=== PATIENT | female | born 1980 | race American Indian/Alaskan Native ===

== ENCOUNTER 2016-03-18 00:37 | Emergency (ER) | payer MEDICAID ==
[2016-03-18 01:28] VITALS: BP 189/125
--- NOTE | 2016-03-18 08:00 | ED Elopement Review ---
ED Pt Elopement review - Call Back decision Pt Call Back Decision: Call pt to return to ED [facility] (HTN, Tachy)
== END 2016-03-18 03:30 | disposition left against medical advice (07) ==
LOC: ED 00:37
DX: F41.9 Anxiety disorder, unspecified (principal); Z53.21 Procedure and treatment not carried out due to patient leaving prior to being seen by health care provider
CPT/HCPCS: 93005; 93010

== ENCOUNTER 2016-03-19 21:07 | Emergency (ER) | payer MEDICAID ==
[2016-03-19 21:40] VITALS: BP 178/116
[2016-03-19 23:12] LABS: Basophils % (Auto) 0.3 % (0.0-1.8); Eosinophils % (Auto) 1.4 % (0.0-4.3); Hematocrit 38.5 % (30.3-42.9); Hemoglobin 12.7 gm/dl (10.1-14.3); Mean Corpuscular HGB Conc 33 % (30-34); Mean Corpuscular Hemoglobin 30 pg (28-32); Mean Corpuscular Volume 90 fl (79-97); Platelet Count 414 K/mm3 (140-440); Red Blood Count 4.27 M/mm3 (3.65-5.03); Red Cell Distribution Width 13.7 % (13.2-15.2); White Blood Count 15.8 K/mm3 (4.5-11.0)
[2016-03-20 01:17] LABS: Anion Gap 17 mmol/L; BUN/Creatinine Ratio 13.33; Blood Urea Nitrogen 8 mg/dL (7-17); Calcium 9.5 mg/dL (8.4-10.2); Carbon Dioxide 27 mmol/L (22-30); Chloride 95.5 mmol/L (98-107); Glucose 119 mg/dL (65-100); Potassium 3.8 mmol/L (3.6-5.0); Sodium 136 mmol/L (137-145)
--- NOTE | 2016-03-20 07:29 | ED Elopement Review ---
ED Pt Elopement review - Results review Lab results: Laboratory Tests 03/19/16 03/19/16 22:59 22:59 WBC 15.8 H RBC 4.27 Hgb 12.7 Hct 38.5 MCV 90 MCH 30 MCHC 33 RDW 13.7 Plt Count 414 Lymph % (Auto) 21.7 [place] % (Auto) 6.3 Eos % (Auto) 1.4 Baso % (Auto) 0.3 Lymph # 3.4 [place] # 1.0 H Eos # 0.2 Baso # 0.1 Seg Neutrophils % 70.3 H Seg Neutrophils # 11.1 H Sodium 136 L Potassium 3.8 Chloride 95.5 L Carbon Dioxide 27 Anion Gap 17 BUN 8 Creatinine 0.6 L Estimated GFR > 60 BUN/Creatinine Ratio 13.33 Glucose 119 H Calcium 9.5 Troponin T < 0.010 - Call Back decision Pt Call Back Decision: Pt to F/U with PMD (White blood cell count of 15,000, hypertension, follow-up with primary care doctor)
== END 2016-03-20 01:08 | disposition left against medical advice (07) ==
LOC: ED 21:07
DX: I10 Essential (primary) hypertension (principal); M79.602 Pain in left arm; Z53.21 Procedure and treatment not carried out due to patient leaving prior to being seen by health care provider
CPT/HCPCS: 36415; 80048; 84484; 85025; 93005; 93010

== ENCOUNTER 2016-06-16 17:41 | Emergency (ER) | payer MEDICAID ==
[2016-06-16 17:53] VITALS: BP 159/120
[2016-06-16 18:19] LABS: Basophils % (Auto) 0.4 % (0.0-1.8); Eosinophils % (Auto) 1.1 % (0.0-4.3); Hematocrit 37.4 % (30.3-42.9); Hemoglobin 12.3 gm/dl (10.1-14.3); Mean Corpuscular HGB Conc 33 % (30-34); Mean Corpuscular Hemoglobin 29 pg (28-32); Mean Corpuscular Volume 89 fl (79-97); Platelet Count 418 K/mm3 (140-440); Red Cell Distribution Width 13.7 % (13.2-15.2); White Blood Count 13.2 K/mm3 (4.5-11.0)
[2016-06-16 18:40] LABS: Anion Gap 18 mmol/L; Blood Urea Nitrogen 9 mg/dL (7-17); Calcium 9.5 mg/dL (8.4-10.2); Carbon Dioxide 27 mmol/L (22-30); Chloride 99.4 mmol/L (98-107); Glucose 93 mg/dL (65-100); Potassium 3.9 mmol/L (3.6-5.0); Sodium 140 mmol/L (137-145)
--- NOTE | 2016-06-16 18:40 | Cat Scan Report ---
FINAL REPORT PROCEDURE: CT head without contrast. TECHNIQUE: Computerized tomography of the head was performed without contrast material. HISTORY: Neurological deficits. COMPARISON: No prior studies are available for comparison. FINDINGS: The ventricles are normal in size. The [place] matter and white matter appear normal. There are no mass lesions. There is no intracranial hemorrhage. There are no signs of acute infarction. An MRI scan with diffusion-weighted imaging is the most sensitive means of detecting an early stroke. The calvarium appears intact. The mastoid air cells and visualized paranasal sinuses are clear. IMPRESSION: Normal study.
[2016-06-16 18:56] LABS: Partial Thromboplastin Time 29.4 Sec. (24.2-36.6)
--- NOTE | 2016-06-21 19:34 | ED Elopement Review ---
ED Pt Elopement review - Results review Lab results: Laboratory Tests 06/16/16 06/16/16 06/16/16 18:03 18:03 18:03 WBC 13.2 H RBC 4.20 Hgb 12.3 Hct 37.4 MCV 89 MCH 29 MCHC 33 RDW 13.7 Plt Count 418 Lymph % (Auto) 24.0 [place] % (Auto) 6.4 Eos % (Auto) 1.1 Baso % (Auto) 0.4 Lymph # 3.2 [place] # 0.8 Eos # 0.1 Baso # 0.1 Seg Neutrophils % 68.1 Seg Neutrophils # 9.0 H PT 13.1 INR 1.00 APTT 29.4 Thrombin Time Sodium 140 Potassium 3.9 Chloride 99.4 Carbon Dioxide 27 Anion Gap 18 BUN 9 Creatinine 0.6 L Estimated GFR > 60 BUN/Creatinine Ratio 15.00 Glucose 93 Calcium 9.5 Troponin T < 0.010 06/16/16 18:03 WBC RBC Hgb Hct MCV MCH MCHC RDW Plt Count Lymph % (Auto) [place] % (Auto) Eos % (Auto) Baso % (Auto) Lymph # Keith # Eos # Baso # Seg Neutrophils % Seg Neutrophils # PT INR APTT Thrombin Time 15.8 Sodium Potassium Chloride Carbon Dioxide Anion Gap BUN Creatinine Estimated GFR BUN/Creatinine Ratio Glucose Calcium Troponin T - Call Back decision Pt Call Back Decision: No action required
== END 2016-06-16 20:00 | disposition left against medical advice (07) ==
LOC: ED 17:41
DX: R51 Headache (principal); I10 Essential (primary) hypertension; E11.9 Type 2 diabetes mellitus without complications; F41.9 Anxiety disorder, unspecified; F32.9 Major depressive disorder, single episode, unspecified; F17.200 Nicotine dependence, unspecified, uncomplicated; Z53.21 Procedure and treatment not carried out due to patient leaving prior to being seen by health care provider
CPT/HCPCS: 36415; 70450; 80048; 84484; 85025; 85610; 85670; 85730; 93005; 93010

== ENCOUNTER 2017-11-12 08:58 | Emergency (ER) | payer MEDICAID ==
[2017-11-12 09:13] VITALS: BP 124/87
[2017-11-12 10:28] LABS: Bilirubin,Urine NEG (Negative); Blood,Urine NEG (Negative); Calcium Oxalate Crystals,Urine 1+; Color,Urine Yellow (Yellow); Mucus,Urine 3+ /HPF
[2017-11-12 10:30] LABS: HCG Qualitative,Urine Negative (Negative)
--- NOTE | 2017-11-12 10:35 | Emergency Department Report ---
ED General Adult HPI - General Chief complaint: Abdominal Pain Stated complaint: HANGING HEMROID Time Seen by Provider: 11/12/17 10:10 Source: patient Mode of arrival: Ambulatory Limitations: No Limitations - History of Present Illness Initial comments: Patient presents to the emergency department after being seen by her nurse practitioner at her doctor's office for left lower quadrant abdominal pain. Patient had a ultrasound done of her abdomen which was concerning for findings on the kidney and she was sent to the emergency department for further evaluation. Patient states that the abdominal pain is mild in nature and is really concerned about the renal findings on ultrasound. Patient also has a history of hemorrhoids. -: Gradual Location: abdomen Radiation: non-radiation Severity scale (0 -10): 1 Consistency: constant Improves with: none Worsens with: none Associated Symptoms: denies other symptoms Treatments Prior to Arrival: none - Related Data Home Medications Medication Instructions Recorded Confirmed Last Taken Atenolol [Tenormin] 50 mg PO BID 12/11/12 12/11/12 10/12/12 Lisinopril [Zestril] 40 mg PO QDAY 12/11/12 12/11/12 10/12/12 Previous Rx's Medication Instructions Recorded Last Taken Type Atenolol [Tenormin] 50 mg PO DAILY #90 tab 12/11/12 Unknown Rx Ciprofloxacin HCl [Cipro] 500 mg PO Q12H #20 tab 01/10/13 Unknown Rx Hycodan 5 ml PO Q4H PRN #120 ml 01/10/13 Unknown Rx predniSONE [Deltasone] 50 mg PO QDAY #5 tab 01/10/13 Unknown Rx ALBUTEROL Inhaler (OR & NICU) 2 puff IH QID PRN #1 inhalation 01/11/13 Unknown Rx [ProAir HFA Inhaler] Albuterol Sulfate [Proventil HFA] 1 - 2 puff IH Q4H PRN #1 hfa.aer.ad 01/16/14 Unknown Rx Amoxicillin/K Clav Tab [Augmentin 1 each PO Q8HR #30 tablet 01/16/14 Unknown Rx 500 mg] Promethazine /Codeine 5 ml PO Q6H PRN #120 ml 01/16/14 Unknown Rx [Phenergan/Codeine 6.25-10 mg/5 ml] guaiFENesin/DEXTROMETHORPHAN 1 each PO BID #20 tbmp.12hr 01/16/14 Unknown Rx [Mucinex Dm ER 1,200-60 mg Tab] predniSONE [Deltasone] 40 mg PO QDAY #10 tab 01/16/14 Unknown Rx Acetaminophen/Codeine [Tylenol #3] 1 tab PO Q6H PRN #15 tab 05/31/15 Unknown Rx Amoxicillin/K Clav Tab [Augmentin 1 tab PO Q12HR #20 tab 05/31/15 Unknown Rx 875 mg] Loratadine [Claritin] 10 mg PO DAILY #14 tablet 05/31/15 Unknown Rx predniSONE [Deltasone] 20 mg PO QDAY #5 tab 05/31/15 Unknown Rx Hydrocortisone [Anusol-Hc] 30 gm RC BID #1 cream..g. 11/12/17 Unknown Rx Hydrocortisone/Pramoxine 10 gm RC TID #1 foam 11/12/17 Unknown Rx [Proctofoam-Hc Foam] Allergies Allergy/AdvReac Type Severity Reaction Status Date / Time amphetamine [From Adderall] Allergy Swelling Verified 11/12/17 09:06 dextroamphetamine Allergy Swelling Verified 11/12/17 09:06 [From Adderall] ED Review of Systems ROS: Stated complaint: HANGING HEMROID Other details as noted in HPI Comment: All other systems reviewed and negative Constitutional: denies: chills, fever Eyes: denies: eye pain, eye discharge, vision change ENT: denies: ear pain, throat pain Respiratory: denies: cough, shortness of breath, wheezing Cardiovascular: denies: chest pain, palpitations Endocrine: no symptoms reported Gastrointestinal: denies: abdominal pain, nausea, diarrhea Genitourinary: denies: urgency, dysuria, discharge Musculoskeletal: denies: back pain, joint swelling, arthralgia Skin: denies: rash, lesions Neurological: denies: headache, weakness, paresthesias Psychiatric: denies: anxiety, depression Hematological/Lymphatic: denies: easy bleeding, easy bruising ED Past Medical Hx - Past Medical History Hx Hypertension: Yes Hx Diabetes: Yes Hx GERD: Yes Hx Psychiatric Treatment: Yes (anxiety depression) Hx Tuberculosis: Yes - Surgical History Hx Breast Surgery: Yes (reduction) Additional Surgical History: , Johnson. breast reduction - Social History Smoking Status: Current Every Day Smoker Substance Use Type: Marijuana - Medications Home Medications: Home Medications Medication Instructions Recorded Confirmed Last Taken Type Atenolol [Tenormin] 50 mg PO BID 12/11/12 12/11/12 10/12/12 History Atenolol [Tenormin] 50 mg PO DAILY #90 tab 12/11/12 Unknown Rx Lisinopril [Zestril] 40 mg PO QDAY 12/11/12 12/11/12 10/12/12 History Ciprofloxacin HCl [Cipro] 500 mg PO Q12H #20 tab 01/10/13 Unknown Rx Hycodan 5 ml PO Q4H PRN #120 ml 01/10/13 Unknown Rx predniSONE [Deltasone] 50 mg PO QDAY #5 tab 01/10/13 Unknown Rx ALBUTEROL Inhaler (OR & NICU) 2 puff IH QID PRN #1 inhalation 01/11/13 Unknown Rx [ProAir HFA Inhaler] Albuterol Sulfate [Proventil HFA] 1 - 2 puff IH Q4H PRN #1 hfa.aer.ad 01/16/14 Unknown Rx Amoxicillin/K Clav Tab [Augmentin 1 each PO Q8HR #30 tablet 01/16/14 Unknown Rx 500 mg] Promethazine /Codeine 5 ml PO Q6H PRN #120 ml 01/16/14 Unknown Rx [Phenergan/Codeine 6.25-10 mg/5 ml] guaiFENesin/DEXTROMETHORPHAN 1 each PO BID #20 tbmp.12hr 01/16/14 Unknown Rx [Mucinex Dm ER 1,200-60 mg Tab] predniSONE [Deltasone] 40 mg PO QDAY #10 tab 01/16/14 Unknown Rx Acetaminophen/Codeine [Tylenol #3] 1 tab PO Q6H PRN #15 tab 05/31/15 Unknown Rx Amoxicillin/K Clav Tab [Augmentin 1 tab PO Q12HR #20 tab 05/31/15 Unknown Rx 875 mg] Loratadine [Claritin] 10 mg PO DAILY #14 tablet 05/31/15 Unknown Rx predniSONE [Deltasone] 20 mg PO QDAY #5 tab 05/31/15 Unknown Rx Hydrocortisone [Anusol-Hc] 30 gm RC BID #1 cream..g. 11/12/17 Unknown Rx Hydrocortisone/Pramoxine 10 gm RC TID #1 foam 11/12/17 Unknown Rx [Proctofoam-Hc Foam] ED Physical Exam - General Limitations: No Limitations General appearance: alert, in no apparent distress - Head Head exam: Present: atraumatic, normocephalic - Eye Eye exam: Present: normal appearance, PERRL, EOMI - ENT ENT exam: Present: mucous membranes moist - Neck Neck exam: Present: normal inspection - Respiratory Respiratory exam: Present: normal lung sounds bilaterally. Absent: respiratory distress, wheezes, rales, rhonchi - Cardiovascular Cardiovascular Exam: Present: regular rate, normal rhythm. Absent: systolic murmur, diastolic murmur, rubs, gallop - GI/Abdominal GI/Abdominal exam: Present: soft, tenderness (left lower quadrant), normal bowel sounds. Absent: distended, guarding - Rectal Rectal exam: Present: other (chaperoned by nurse Crystal Hall R.N. external nonthrombosed hemorrhoid) - Extremities Exam Extremities exam: Present: normal inspection - Back Exam Back exam: Present: normal inspection - Neurological Exam Neurological exam: Present: alert, oriented X3, CN II-XII intact. Absent: motor sensory deficit - Psychiatric Psychiatric exam: Present: normal affect, normal mood - Skin Skin exam: Present: warm, dry, intact, normal color. Absent: rash ED Course Vital Signs 11/12/17 09:06 Temperature 99.2 F Pulse Rate 91 H Respiratory 18 Rate Blood Pressure 124/87 O2 Sat by Pulse 100 Oximetry ED Medical Decision Making - Lab Data Result diagrams: 11/12/17 10:39 11/12/17 10:39 - Medical Decision Making Stress results with patient and CT of abdomen was reviewed that showed the patient had a renal cyst on the left side which was discussed with the patient as well as a renal calcification versus inflammation on the right kidney which she states she will follow with her PCP for Critical care attestation.: If time is entered above; I have spent that time in minutes in the direct care of this critically ill patient, excluding procedure time. ED Disposition Clinical Impression: Abdominal pain, Renal cyst, Hemorrhoid Disposition: DC- TO HOME OR SELFCARE Is pt being admited?: No Does the pt Need Aspirin: No Condition: Stable Instructions: Abdominal Pain (ED), Hemorrhoids (ED), Acute Abdominal Pain (ED) Additional Instructions: return if worse Prescriptions: Hydrocortisone [Anusol-Hc] 30 gm RC BID #1 cream..g. Hydrocortisone/Pramoxine [Proctofoam-Hc Foam] 10 gm RC TID #1 foam Referrals: DENILSON PATRICIO MD [Primary Care Provider] - 3-5 Days Time of Disposition: 13:12
[2017-11-12 10:53] LABS: Basophils # (Auto) 0.1 K/mm3 (0.0-0.1); Basophils % (Auto) 0.8 % (0.0-1.8); Eosinophils # (Auto) 0.3 K/mm3 (0.0-0.4); Eosinophils % (Auto) 2.8 % (0.0-4.3); Hematocrit 38.3 % (30.3-42.9); Hemoglobin 12.9 gm/dl (10.1-14.3); Lymphocytes # (Auto) 2.7 K/mm3 (1.2-5.4); Lymphocytes % (Auto) 27.4 % (13.4-35.0); Mean Corpuscular HGB Conc 34 % (30-34); Mean Corpuscular Hemoglobin 31 pg (28-32); Mean Corpuscular Volume 92 fl (79-97); Monocytes % (Auto) 9.7 % (0.0-7.3); Platelet Count 331 K/mm3 (140-440); Red Blood Count 4.15 M/mm3 (3.65-5.03); Red Cell Distribution Width 14.7 % (13.2-15.2)
[2017-11-12 11:15] LABS: Alanine Aminotransferase 10 units/L (7-56); BUN/Creatinine Ratio 20; Blood Urea Nitrogen 12 mg/dL (7-17); Calcium 9.8 mg/dL (8.4-10.2); Hemolysis Index 9
--- NOTE | 2017-11-12 12:55 | Cat Scan Report ---
FINAL REPORT EXAM: CT ABDOMEN PELVIS W CON HISTORY: LLQ ab Pain TECHNIQUE: CT of the abdomen and pelvis was performed after the administration of intravenous contrast. Subsequently, CT of the abdomen and pelvis was performed in the delayed phase. Reconstructions were included in the coronal and sagittal planes. PRIORS: None. FINDINGS: Lower thorax: The lung bases are clear. The visualized portions of the heart are normal. Liver: The liver is normal in attenuation. No intrahepatic biliary duct dilation. No focal hepatic lesions. Gallbladder/ biliary system: No cholelithiasis. The common bile duct appears nondilated. Spleen: No splenic lesions are seen. Pancreas: No pancreatic lesions are seen. No pancreatic duct dilation. Kidneys: Small low-attenuation lesion is seen in the inferior pole of the left kidney which is too small to characterize but likely represents a small cyst. There are several calcifications in the left hemipelvis which are inseparable from the left distal ureter. No hydroureteronephrosis. Note that the left distal ureter was not opacified with contrast on the delayed phase. There is an area of heterogeneous soft tissue projecting off of the inferior pole of the right kidney measuring 2.3 x 1.7 x 1.4 centimeters. Adrenal glands: No adrenal masses. Vasculature: The abdominal and pelvic vasculature is patent without variant anatomy. Lymph nodes: Several small bilateral inguinal lymph nodes are seen. The largest is seen in the left inguinal region measuring 1.8 x 1.3 centimeters. Bowel, mesentery, peritoneum: No bowel obstruction. No free fluid or free air. The appendix is normal. No colonic diverticulosis. No bowel wall thickening. Urinary bladder: No filling defects are seen. Pelvis: The uterus appears diffusely heterogeneous. Abdominal wall: No abdominal wall hernia or other subcutaneous findings. Bones: Degenerative changes are seen in the spine. IMPRESSION: 1. Several small calcifications in the left hemipelvis are inseparable from the left distal ureter and may represent phleboliths versus distal ureteral calculi. Ureteral calculi are felt less likely as there is no hydroureteronephrosis. 2. Mildly prominent inguinal lymph nodes are likely reactive. 3. Nonspecific heterogeneous soft tissue projecting off of the inferior pole of the right kidney may represent a focus of infection or inflammation versus scarring or possibly a renal lesion. Consider further evaluation with dedicated renal CT or MRI for better characterization. 4. Small nonspecific low-attenuation left renal lesion is too small to characterize but likely represents a small cyst. 5. Heterogeneous uterus may be related to underlying fibroids. Consider further evaluation with pelvic ultrasound.
== END 2017-11-12 13:28 | disposition home or self-care (01) ==
LOC: ED 08:58
DX: N28.1 Cyst of kidney, acquired (principal); I10 Essential (primary) hypertension; K21.9 Gastro-esophageal reflux disease without esophagitis; E11.9 Type 2 diabetes mellitus without complications; F32.9 Major depressive disorder, single episode, unspecified; F41.9 Anxiety disorder, unspecified; F17.200 Nicotine dependence, unspecified, uncomplicated; Z88.1 Allergy status to other antibiotic agents
CPT/HCPCS: 36415; 74177; 80053; 81001; 81025; 85025; 99284; Q9967

== ENCOUNTER 2018-03-21 15:43 | Emergency (ER) | payer MEDICAID ==
--- NOTE | 2018-03-21 16:50 | Emergency Department Report ---
Blank Doc - Documentation Documentation: 37 y o female presents with left lower back pain stating she has a mass on her left kidney, states crampy type pain to back worsened saturday with moving the wrong way by grabing a swinging door, Mildly tender to left flank PLAN: UA meds reevaluate
[2018-03-21 17:11] VITALS: BP 173/91
[2018-03-21 17:47] LABS: HCG Qualitative,Urine Negative (Negative)
[2018-03-21 17:50] LABS: Bilirubin,Urine NEG (Negative); Blood,Urine NEG (Negative); Color,Urine Yellow (Yellow); Mucus,Urine FEW /HPF; Protein,Urine <15 mg/dL mg/dL (Negative); Urobilinogen,Urine < 2.0 mg/dL (<2.0); WBC,Urine < 1.0 /HPF (0.0-6.0)
[2018-03-21] MEDS ORDERED: TORADOL IM ONE (18:07)
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
--- NOTE | 2018-03-21 18:40 | Cat Scan Report ---
FINAL REPORT EXAM: CT HEAD/BRAIN WO CON HISTORY: back pain, LT cva tenderbess TECHNIQUE: CT head without contrast PRIORS: None. FINDINGS: No acute intra-axial or extra-axial hemorrhage is identified. There is no evidence of midline shift or mass effect. The ventricles and sulci are within normal limits. Pinto-white matter differentiation is intact. No acute parenchymal abnormalities seen. Bony calvarium is grossly intact. Visualized portions of the mastoids and paranasal sinuses are unre markable. IMPRESSION: Negative CT head
[2018-03-21 19:41] LABS: BUN/Creatinine Ratio 12; Blood Urea Nitrogen 6 mg/dL (7-17); Hemolysis Index 3
[2018-03-21] MEDS ORDERED: K-DUR PO ONE (21:37)
--- NOTE | 2018-03-21 22:23 | Cat Scan Report ---
FINAL REPORT PROCEDURE: CT abdomen and pelvis without contrast. TECHNIQUE: Computerized axial tomography of the abdomen and pelvis was performed without intravenous contrast. This study is performed without intravascular contrast material and its sensitivity for ab dominal and pelvic pathology, including neoplasms, inflammation, abscess, free fluid, thrombosis, art erial dissection and infarction, is reduced compared with a contrast enhanced study. HISTORY: Left costovertebral angle tenderness. COMPARISON: CT abdomen and pelvis 11/12/2017. FINDINGS: The lung bases are clear. There are no pleural effusions. The heart size is normal. The liver, pancre as and spleen are grossly normal. The gallbladder is present. There is no biliary dilatation. The adr enal glands are not enlarged. Both kidneys appear normal in size and configuration. The abdominal aor ta has a normal caliber. There is no retroperitoneal adenopathy. The unopacified gastrointestinal tra ct appears normal. The appendix is not definitely visualized. The bladder, uterus and adnexal regions are unremarkable. The regional skeleton appears intact. IMPRESSION: No evidence of acute disease in the abdomen or pelvis.
== END 2018-03-21 23:29 | disposition home or self-care (01) ==
LOC: ED 15:43
DX: S39.012A Strain of muscle, fascia and tendon of lower back, initial encounter (principal); I10 Essential (primary) hypertension; E11.9 Type 2 diabetes mellitus without complications; K21.9 Gastro-esophageal reflux disease without esophagitis; F17.200 Nicotine dependence, unspecified, uncomplicated; F12.90 Cannabis use, unspecified, uncomplicated; Z88.8 Allergy status to other drugs, medicaments and biological substances; Z79.82 Long term (current) use of aspirin; X58.XXXA Exposure to other specified factors, initial encounter; Y93.89 Activity, other specified; Y92.89 Other specified places as the place of occurrence of the external cause; Y99.8 Other external cause status
CPT/HCPCS: 36415; 70450; 74176; 80048; 81001; 81025; 96372; 99284; J1885

== ENCOUNTER 2020-05-17 14:44 | Emergency (ER) | payer MEDICAID ==
[2020-05-17 15:37] VITALS: BP 145/91
== END 2020-05-17 19:00 | disposition left against medical advice (07) ==
LOC: ED 14:44
DX: R51.9 Headache, unspecified (principal); Z53.21 Procedure and treatment not carried out due to patient leaving prior to being seen by health care provider